=== PATIENT | female | born 1970 | race Caucasian/White ===

== ENCOUNTER 2018-11-08 11:08 | Emergency (ER) | payer OTHER ==
[2018-11-08 11:32] LABS: Bilirubin Negative (Negative); Blood, Urine Negative (Negative); Clarity Clear (Clear); Glucose, Urine (Dipstick) Negative (Negative); Leukocyte Negative (Negative); Nitrite Negative (Negative); Protein, Urine (Dipstick) Negative (Neg-Trace); Urobilinogen 0.2 mg/dL (0.2-1.0)
[2018-11-08 12:17] LABS: #Basophils 0.1 thou/uL (0.0-0.2); #Eosinphils 0.2 thou/uL (0.0-0.7); #Lymphocytes 1.9 thou/uL (1.20-3.40); #Monocytes 0.4 thou/uL (0.11-0.59); #Neutrophils 5.3 thou/uL (1.40-6.50); %Basophils 1.1 % (0.0-1.0); %Eosinophils 2.2 % (0.0-10.0); %Lymphocytes 24.1 % (21.0-51.0); %Monocytes 5.5 % (0.0-10.0); %Neutrophils 67.2 % (42.0-75.0); Mean Corpuscular HGB CONC 32.1 g/dL (32.0-36.0); Mean Corpuscular Hemoglobin 29.2 pg (27.0-31.0); Mean Corpuscular Volume 90.9 fL (78.0-98.0); Mean Platelet Volume 8.5 fL (7.4-10.4); Platelet Count 229 thou/uL (130-400); Red Blood Cell (RBC) Count 4.44 mill/uL (4.20-5.40); White Blood Cell (WBC) Count 7.9 thou/uL (4.8-10.8)
[2018-11-08 12:31] LABS: ALT (SGPT) 26 U/L (8-55); AST (SGOT) 22 U/L (5-34); Albumin 4.2 g/dL (3.5-5.0); Alkaline Phosphatase 87 U/L (40-150); Anion Gap 11 mmol/L (10-20); BUN (Urea Nitrogen) 11 mg/dL (7.0-18.7); Bilirubin, Total 0.3 mg/dL (0.2-1.2); Calc. Creatinine Clearance 0 mL/min (70-130); Calcium 9.4 mg/dL (7.8-10.44); Carbon Dioxide 28 mmol/L (22-29); Chloride 103 mmol/L (98-107); Estimated GFR-MDRD 74; Glucose 85 mg/dL (70-105); Lipase 27 U/L (8-78); Potassium 3.9 mmol/L (3.5-5.1); Protein, Total 7.2 g/dL (6.0-8.3); Sodium 138 mmol/L (136-145)
--- NOTE | 2018-11-08 13:13 | CT ---
CT ABDOMEN AND PELVIS: HISTORY: Left lower quadrant pain since yesterday. History of pancreatitis two years ago. TECHNIQUE: Noncontrast enhanced CT images of the abdomen and pelvis are obtained. IV and oral contrast was not given. FINDINGS: The lung bases are unremarkable. No evidence of free intraperitoneal air is seen. The patient has h ad gastric surgical nathan. The gallbladder has been surgically removed. The liver and spleen are unremarkable. The adrenal glands are unremarkable. No evidence of renal calculi or hydronephrosis i s seen. The pancreas is unremarkable. No dilated loops of small bowel seen. The colon demonstrates no evidence of obvious significant obstruction. A normal amount of stool is seen in the colon. No definite osseous lesion is seen. IMPRESSION: 1. Gastric surgical changes. 2. Status post cholecystectomy. POS: [facility]
[2018-11-08] MEDS ORDERED: Acetaminophen/Codeine 30-300mg Tablet ONE (13:23)
--- NOTE | 2018-11-08 13:23 | ULT ---
PELVIC ULTRASOUND: Date: 11/08/18 HISTORY: Pelvic pain. FINDINGS: Multiple transabdominal and endovaginal sonographic images of the pelvis are obtained. The uterus is not visualized, consistent with the patient's reported history of prior hysterectomy. There are nabothian cysts seen within the cervix. The ovaries are not visualized bilaterally, but no adnexal mass is seen, and no free fluid is seen in the pelvis. IMPRESSION: 1. Nonvisualization of the bilateral ovaries. No adnexal mass or free fluid is identified. 2. Nonvisualization of the uterus related to patient's history of prior hysterectomy. POS: [facility]
== END 2018-11-08 13:31 | disposition home or self-care (01) ==
LOC: SCSER 11:08
DX: R10.32 Left lower quadrant pain (principal); F41.9 Anxiety disorder, unspecified; F32.9 Major depressive disorder, single episode, unspecified; I10 Essential (primary) hypertension; Z79.899 Other long term (current) drug therapy
CPT/HCPCS: 36415; 74176; 76856; 80053; 81003; 83605; 83690; 85025

== ENCOUNTER 2019-12-19 07:54 | Outpatient (CLI) | payer OTHER ==
--- NOTE | 2019-12-20 12:40 | MMO ---
Bilateral MAMMO Bilat Screen [facility]DI. CLINICAL HISTORY: Patient is 49 years old and is seen for screening. The patient has the following family history of breast cancer: maternal grandmother, at age 54, malignant (generic) and paternal grandmother, at age 80, malignant (generic). The patient has a history of bilateral Breast reduction at age 27. VIEWS: The views performed were: bilateral craniocaudal; bilateral mediolateral oblique; and bilateral exaggerated craniocaudal. FILMS COMPARED: The present examination has been compared to prior imaging studies performed at [facility] on 10/12/2013 and 12/12/2015. This study has been interpreted with the assistance of computer-aided detection. MAMMOGRAM FINDINGS: There are scattered fibroglandular densities. There are no suspicious masses, suspicious calcifications, or new areas of architectural distortion. IMPRESSION: THERE IS NO MAMMOGRAPHIC EVIDENCE OF MALIGNANCY. A ROUTINE FOLLOW-UP MAMMOGRAM IN 1 YEAR IS RECOMMENDED. ACR BI-RADS Category 1 - Negative MAMMOGRAPHY NOTE: 1. A negative mammogram report should not delay a biopsy if a dominant of clinically suspicious mass is present. 2. Approximately 10% to 15% of breast cancers are not detected by mammography. 3. Adenosis and dense breasts may obscure an underlying neoplasm. Reported by: MARTHA GARDNER MD Electonically Signed: [id number]
== END 2019-12-19 07:55 | disposition home or self-care (01) ==
LOC: BICMAMMO 07:54
PROVIDERS: ATTEND Nurse Practitioner
DX: Z12.31 Encounter for screening mammogram for malignant neoplasm of breast (principal); Z80.3 Family history of malignant neoplasm of breast; Z98.890 Other specified postprocedural states
CPT/HCPCS: 77067

== ENCOUNTER 2019-12-28 07:57 | Observation (INO) | payer OTHER ==
[2019-12-28 08:42] LABS: #Basophils 0.1 thou/uL (0.0-0.2); #Eosinphils 0.1 thou/uL (0.0-0.7); #Lymphocytes 1.5 thou/uL (1.20-3.40); #Monocytes 0.4 thou/uL (0.11-0.59); #Neutrophils 3.1 thou/uL (1.40-6.50); %Basophils 1.6 % (0.0-1.0); %Eosinophils 2.2 % (0.0-10.0); %Monocytes 7.6 % (0.0-10.0); %Neutrophils 59.6 % (42.0-75.0); Hemoglobin 13.7 g/dL (12.0-16.0); Mean Corpuscular HGB CONC 32.3 g/dL (32.0-36.0); Mean Corpuscular Hemoglobin 29.8 pg (27.0-31.0); Mean Corpuscular Volume 92.5 fL (78.0-98.0); Mean Platelet Volume 9.1 fL (7.4-10.4); Platelet Count 242 thou/uL (130-400); RBC Distribution Width 12.2 % (11.5-14.5); Red Blood Cell (RBC) Count 4.57 mill/uL (4.20-5.40); White Blood Cell (WBC) Count 5.3 thou/uL (4.8-10.8)
--- NOTE | 2019-12-28 08:47 | CT ---
Exam: Head CT without contrast HISTORY: Altered mental status COMPARISON: 11/05/2014 FINDINGS: Hemorrhage: No intraparenchymal hemorrhage or extra-axial hematoma. Brain parenchyma: Cortical arceo-white matter differentiation is preserved. No mass effect or midline shift. Basilar cisterns are patent. Ventricular system: Ventricles and sulci are patent and symmetric. Calvarium: Intact. Sinuses and mastoid air cells: Adequate aeration. IMPRESSION: No acute intracranial process.
[2019-12-28 09:04] LABS: ALT (SGPT) 14 U/L (8-55); AST (SGOT) 21 U/L (5-34); Albumin 4.4 g/dL (3.5-5.0); Alkaline Phosphatase 85 U/L (40-110); Anion Gap 12 mmol/L (10-20); BUN (Urea Nitrogen) 12 mg/dL (7.0-18.7); Bilirubin, Total 0.4 mg/dL (0.2-1.2); Calc. Creatinine Clearance 0 mL/min (70-130); Carbon Dioxide 28 mmol/L (22-29); Chloride 102 mmol/L (98-107); Estimated GFR-MDRD 61; Globulin 3.1 g/dL (2.4-3.5); Glucose 83 mg/dL (70-105); Potassium 4.1 mmol/L (3.5-5.1); Protein, Total 7.5 g/dL (6.0-8.3); Sodium 138 mmol/L (136-145)
[2019-12-28] MEDS ORDERED: Aspirin Chewable 81 MG TAB ONE (09:30)
[2019-12-28] MEDS ORDERED: Ondansetron ODT 4 MG TAB PO PRN (09:53)
[2019-12-28] MEDS ORDERED: Bisacodyl 5 MG TAB PO PRN (09:53)
[2019-12-28] MEDS ORDERED: HYDROcodone/Acetaminophen 5/325 mg Tablet PO PRN (09:53)
[2019-12-28] MEDS ORDERED: Ondansetron PF 4 MG/2 ML Vial IVP PRN (09:53)
[2019-12-28] MEDS ORDERED: Benzonatate 100 MG CAP PO PRN (10:04)
[2019-12-28] MEDS ORDERED: Melatonin 3 MG TAB PO PRN (10:04)
[2019-12-28] MEDS ORDERED: diphenhydrAMINE 25 MG CAP PO PRN (10:04)
[2019-12-28] MEDS ORDERED: hydrALAZINE 20 MG/ML VIAL SLOW IVP PRN (10:04)
[2019-12-28] MEDS ORDERED: Labetalol HCl 100 MG/20 ML VIAL SLOW IVP PRN (10:04)
[2019-12-28] MEDS ORDERED: Docusate 100 MG CAP PO PRN (10:04)
--- NOTE | 2019-12-28 10:06 | RAD ---
CHEST 1 VIEW PORTABLE: Date: 12/28/2019 HISTORY: Altered mental status. Right-sided numbness. COMPARISON: 12/24/2013. FINDINGS: Monitor leads overlie the chest. Heart size is within normal limits. The lungs are clear of acute pro cess. IMPRESSION: No acute intrathoracic disease. Stable exam. POS: [facility]
[2019-12-28] MEDS ORDERED: Ibuprofen 600 MG TAB PO PRN (11:30)
[2019-12-28] MEDS: Acetaminophen 325 MG TAB PO PRN (14:37)
[2019-12-28 14:47] VITALS: BMI 29.7
--- NOTE | 2019-12-28 15:06 | MRI ---
Exam: Brain MRI without contrast HISTORY: Transient ischemic attack COMPARISON: None FINDINGS: Calvarial marrow signal intensity: T1 marrow signal hypointensity. Correlate for anemia or a marrow i nfiltrative process Gradient echo sequence: No hemorrhage Brain parenchyma: No mass, mass effect or midline shift. Brain volume, age-appropriate. Cortical arceo-white matter differentiation: Preserved Restricted diffusion: Central arterial flow voids are maintained. Absent restricted diffusion White matter signal intensities: No significant T2, FLAIR white matter hyperintensities Sinuses: Adequate aeration of the paranasal sinuses and mastoid air cells. IMPRESSION: 1. Absent restricted diffusion. No acute infarct. 2. T1 marrow signal hypointensity. Correlate for anemia or a marrow infiltrative process.
--- NOTE | 2019-12-28 15:55 | ULT ---
BILATERAL CAROTID DUPLEX ULTRASOUND INCLUDING COLOR AND SPECTRAL DOPPLER IMAGING: DATE: 12/28/2019 HISTORY: TIA. FINDINGS: PSV Right ICA: 62 cm/sec EDV: 27 cm/sec ICA/CCA Ratio: 0.7 PSV Left ICA: 106 cm/sec EDV: 48 cm/sec ICA/CCA Ratio: 1.0 Vertebral flow is antegrade. IMPRESSION: No hemodynamically significant stenosis. POS: [facility]
--- NOTE | 2019-12-28 16:46 | PDOC.HHP ---
Hospitalist HPI - History of Present Illness TIA symptoms History of Present Illness: Very pleasant 49-year-old female with past medical history of TIA, hypertension , and obesity status post gastric bypass who presents with TIA symptoms. Patient started having symptoms yesterday around 7 PM which involved numbness and tingling on the right side of face, right arm, and leg with associated weakness. Patient also had numbness and tingling to the tongue only on half of the tongue however. Patient symptoms lasted about 45 minutes to an hour and then they did improve and she was resting at home. 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 I find the patient in the emergency department she is resting in bed in no apparent distress. Patient still complaining of headache at this time and states that this has been persistent as her blood pressure has been elevated near 200 systolic. Patient has been off for blood pressure medications for some time as she had a good deal of weight loss after bariatric surgery. With patient's neurologic symptoms I've recommended neurology consultation and CVA work up. Hospitalist ROS - Review of Systems All other systems reviewed; all pertinent +/- noted in HPI/Subj - Medication Medications: Active Medications Generic Name Dose Route Start Last Admin Trade Name Freq PRN Reason Stop Dose Admin Acetaminophen 650 mg 12/28/19 09:53 12/28/19 14:37 Tylenol PO 650 mg Q4H PRN Administration Headache/Fever/Mild Pain (1-3) Hospitalist History - Past Medical History Source: patient, old records Cardiac: reports: HTN Pulmonary: reports: CVA/TIA/stroke Gastrointestinal: reports: Other (gastric bypass) - Past Surgical History Past Surgical History: reports: Other (gastric bypass) - Family History Family History: reports: hypertension - Social History Smoking Status: Never smoker Alcohol: reports: None Drugs: reports: none Living Situation: With Family Activity level: independent ambulation - Exam General Appearance: NAD, awake alert Eye: PERRL, anicteric sclera ENT: normocephalic atraumatic, moist mucosa Neck: supple, symmetric, no lymphadenopathy Heart: RRR, no murmur, no gallops, no rubs Respiratory: CTAB, no wheezes, no rales, no ronchi, normal chest expansion, no tachypnea Gastrointestinal: soft, non-tender, no guarding, no rigidity Extremities: no edema Skin: no lesions, no rashes Neurological: cranial nerve grossly intact, normal sensation to touch, no weakness, no focal deficits Psychiatric: normal affect, normal behavior, A&O x 3 Hospitalist Results - Labs Result Diagrams: 12/28/19 08:12 12/28/19 08:12 Lab results: WBC 5.3 thou/uL (4.8-10.8) 12/28/19 08:12 Hgb 13.7 g/dL (12.0-16.0) 12/28/19 08:12 Hct 42.3 % (36.0-47.0) 12/28/19 08:12 MCV 92.5 fL (78.0-98.0) 12/28/19 08:12 Plt Count 242 thou/uL (130-400) 12/28/19 08:12 Neutrophils % 59.6 % (42.0-75.0) 12/28/19 08:12 Sodium 138 mmol/L (136-145) 12/28/19 08:12 Potassium 4.1 mmol/L (3.5-5.1) 12/28/19 08:12 Chloride 102 mmol/L (98-107) 12/28/19 08:12 Carbon Dioxide 28 mmol/L (22-29) 12/28/19 08:12 BUN 12 mg/dL (7.0-18.7) 12/28/19 08:12 Creatinine 0.97 mg/dL (0.6-1.1) 12/28/19 08:12 Glucose 83 mg/dL (70-105) 12/28/19 08:12 Calcium 10.0 mg/dL (7.8-10.44) 12/28/19 08:12 Total Bilirubin 0.4 mg/dL (0.2-1.2) 12/28/19 08:12 AST 21 U/L (5-34) 12/28/19 08:12 ALT 14 U/L (8-55) 12/28/19 08:12 Alkaline Phosphatase 85 U/L (40-110) 12/28/19 08:12 Troponin I 0.010 ng/mL (< 0.028) 12/28/19 08:12 Serum Total Protein 7.5 g/dL (6.0-8.3) 12/28/19 08:12 Albumin 4.4 g/dL (3.5-5.0) 12/28/19 08:12 - Radiology Interpretation CT scan - head Status: image reviewed by me Hospitalist H&P A/P - Problem (1) TIA (transient ischemic attack) Code(s): G45.9 - TRANSIENT CEREBRAL ISCHEMIC ATTACK, UNSPECIFIED Status: Acute (2) Malignant hypertension Code(s): I10 - ESSENTIAL (PRIMARY) HYPERTENSION Status: Acute (3) Obesity Code(s): E66.9 - OBESITY, UNSPECIFIED Status: Acute (4) Hypertension Code(s): I10 - ESSENTIAL (PRIMARY) HYPERTENSION Status: Acute (5) Obstructive sleep apnea Code(s): G47.33 - OBSTRUCTIVE SLEEP APNEA (ADULT) (PEDIATRIC) Status: Acute - Plan Plan: Plan: Admit to medical unit with telemetry, stroke unit Neurology consultation, recommendations appreciated continuous telemetry to monitor for rhythm abnormalities that could explain symptoms MRI brain Ultrasound carotid echocardiogram recommend trying something for migraine, patient only wishes to take Tylenol blood pressure control, I will restart her lisinopril at this point with TIA in the past, and now TAA symptoms I would recommend a stroke regimen: -Start Bg inh -Start statin -Start aspirin fasting lipid panel blood pressure control blood sugar control G.I. prophylaxis DVT prophylaxis
[2019-12-28] MEDS ORDERED: Lisinopril 20 MG TAB PO SCH (17:00)
[2019-12-28] MEDS ORDERED: Atorvastatin Calcium 10 MG TAB PO SCH (21:00)
[2019-12-28] MEDS: Famotidine 20 MG TAB PO SCH (21:09)
[2019-12-29] MEDS: Acetaminophen 325 MG TAB PO PRN ×2 (03:25→08:29)
[2019-12-29 06:06] LABS: Cardiac Risk 1.6 (Less than 4.5)
[2019-12-29] MEDS: Famotidine 20 MG TAB PO SCH (08:28)
[2019-12-29] MEDS ORDERED: Lisinopril 20 MG TAB PO SCH (09:00)
[2019-12-29] MEDS ORDERED: Aspirin 325 mg Enteric Coated Tablet PO SCH (09:00)
--- NOTE | 2019-12-29 10:25 | CON ---
DATE OF CONSULTATION: 12/29/2019 CONSULTING PHYSICIAN: Hospitalist Service. IMPRESSION: Transient numbness and headaches secondary to either a migraine or hypertensive spike. PLAN: 1. Continue lisinopril. 2. Aspirin 81 mg per day. 3. The patient can be discharged home. HISTORY OF PRESENT ILLNESS: Ms. Henderson is a 49-year-old female with a past history of hypertension and obesity. She lost quite a bit of weight and was able to get off the medication. She was driving home when she suddenly noticed that the right side of her face felt numb. She started developing a fairly significant headache. When she got home, she took her blood pressure and it was elevated at 190/118. She decided to rest and take a nap. After waking up, the symptoms were gone. She came in for further evaluation. Her CT and MRI of the brain were both unremarkable. Her carotid ultrasound is clear. Her blood pressures have improved after starting treatment. She denies any other past history of recent migraines, but had one in the distant past. PAST HISTORY: Hypertension, obesity. ALLERGIES: ATROPINE, HYOSCYAMINE, PHENOBARBITAL, AND SCOPOLAMINE. MEDICATIONS: List was reviewed. SOCIAL HISTORY: No tobacco use. FAMILY HISTORY: Noncontributory. REVIEW OF SYSTEMS: Ten-system review of systems is otherwise negative. PHYSICAL EXAMINATION: VITAL SIGNS: Blood pressure 117/64, pulse 45, respirations 14, and temperature 98.1. HEENT: Pupils are equal and reactive. Conjunctivae are clear. Oropharynx clear. NECK: Supple. EXTREMITIES: No cyanosis, clubbing, or edema. NEUROLOGIC: She is alert and appropriate. Her speech is fluent and clear. Cranial nerves are intact. Motor exam shows equal strength. She has no fix or drift. She can walk independently. IMAGING STUDIES: EKG shows sinus bradycardia. SUMMARY: Middle-aged woman with some transient hemifacial numbness along with a headache and hypertensive spike. I do not think this was a primary TIA, but more likely either hypertensive urgency versus migraine, which provoke some secondary elevation of blood pressure. Workup thus far is negative. I think she is stable for discharge. Job ID: [id number]
[2019-12-29 11:40] VITALS: TEMP 98.3
[2019-12-29 16:30] VITALS: BP 120/79
--- NOTE | 2019-12-30 02:02 | DIS ---
DATE OF ADMISSION: 12/28/2019 DATE OF DISCHARGE: 12/29/2019 REASON FOR HOSPITALIZATION: Right-sided numbness, weakness, and tingling. SIGNIFICANT FINDINGS: The patient was found to have a negative MRI of the brain, negative for acute CVA, stroke workup was benign. PROCEDURES PERFORMED AND TREATMENTS RENDERED: Ms. Henderson is a very pleasant 49-year-old female with past medical history of TIA and hypertension, who presents to [facility] on 12/28/2019 with right-sided weakness, numbness, and tingling. Please see full history and physical and consultation notes for full details. The patient tells me that around 7 p.m., the evening prior to admission, she developed tingling on the right side of the face, right arm, leg, and there was associated weakness. The patient even had loss of sensation in the right side of her tongue. The patient did note that she also had severely elevated blood pressure nearly 200 systolic. The patient has been off blood pressure medications for several years as she has had a good deal of weight loss after bariatric surgery. The patient waited roughly 45 minutes at home and her symptoms did improve and she went to sleep. 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 I admitted the patient to the medical unit with telemetry and she was monitored on continuous telemetry throughout her hospitalization and there were no acute events. With the addition of blood pressure medications lisinopril, her blood pressure was controlled. The patient was evaluated by Neurology, please see full consultation notes for details. Neurology agreeing with CVA workup and recommending that symptoms may have 3 possibilities: TIA, complex migraine, or blood pressure related. The patient did have a severe headache with this and it did also improve with symptomatic therapy and blood pressure control. Due to the patient having prior episodes of TIA, I recommended a stroke regimen to reduce her risk for future events. YAQUELIN inhibitor, statin, and aspirin therapy was initiated while in hospitalization. The patient was evaluated by Physical Therapy and Occupational Therapy and as symptoms have resolved, she was recommended safe for discharge home. The patient was not a tPA candidate secondary to low NIH score on admission and onset of timing being out of the window. A fasting lipid panel was performed prior to discharge for core measures. On the morning of 12/29/2019, after she was cleared by Neurology, Physical Therapy, and that her symptoms have resolved, I recommended that she was safe for discharge with close followup in the outpatient setting. Medications were sent to the patient's preferred pharmacy for her convenience. I recommended that she follow up with primary care physician and Neurology in the outpatient clinic in the upcoming weeks. The patient was strictly advised that if symptoms occur acutely next time, she is to come to the hospital immediately and not delay care. CONDITION ON DISCHARGE: Stable. SPECIFIC INSTRUCTIONS FOR THE PATIENT/FAMILY: 1. The patient recommended to keep a blood pressure log and bring this to her appointments at primary care physician and Neurology. 2. The patient recommended to take all medications as directed, to be re-evaluated by primary care physician and Neurology. 3. The patient recommended to return to acute care hospital immediately if signs or symptoms return, worsen, or any other new symptoms occur. DISCHARGE MEDICATIONS: 1. Atorvastatin 10 mg 1 tab p.o. at bedtime. 2. Aspirin 325 mg 1 tab p.o. daily with food. 3. Lisinopril 10 mg 1 tab p.o. b.i.d. 4. Multivitamin 1 tab p.o. daily. 5. Valtrex 1000 mg p.o. daily p.r.n. outbreak. 6. Vitamin D3, 5000 units p.o. daily. Greater than 39 minutes spent coordinating care and discharge process for this patient. Job ID: [id number]
== END 2019-12-29 12:57 | disposition home or self-care (01) ==
LOC: ERS 07:57 → ERHOLD 10:03 → 2SE 13:48
PROVIDERS: ADMIT Internal Medicine; ATTEND Internal Medicine
DX: R20.0 Anesthesia of skin (principal); R20.2 Paresthesia of skin; R53.1 Weakness; R51 Headache; I10 Essential (primary) hypertension; G47.33 Obstructive sleep apnea (adult) (pediatric); F41.9 Anxiety disorder, unspecified; E66.9 Obesity, unspecified; Z68.29 Body mass index [BMI] 29.0-29.9, adult; Z86.73 Personal history of transient ischemic attack (TIA), and cerebral infarction without residual deficits; Z79.899 Other long term (current) drug therapy; Z88.8 Allergy status to other drugs, medicaments and biological substances; Z98.84 Bariatric surgery status
CPT/HCPCS: 36415; 70450; 70551; 71045; 80053; 80061; 84484; 85025; 93005; 93880; G0378

== ENCOUNTER 2020-07-08 17:17 | Emergency (ER) | payer OTHER ==
[~2020-07-08 17:17] MED LIST: Iopamidol-370 76% 500 ML 1 ML ONE
[2020-07-08 17:52] LABS: #Basophils 0.1 thou/uL (0.0-0.2); #Eosinphils 0.3 thou/uL (0.0-0.7); #Lymphocytes 1.7 thou/uL (1.20-3.40); #Monocytes 0.4 thou/uL (0.11-0.59); #Neutrophils 4.2 thou/uL (1.40-6.50); %Basophils 1.1 % (0.0-1.0); %Lymphocytes 25.6 % (21.0-51.0); %Monocytes 6.5 % (0.0-10.0); %Neutrophils 62.8 % (42.0-75.0); Hemoglobin 11.8 g/dL (12.0-16.0); Mean Corpuscular HGB CONC 32.9 g/dL (32.0-36.0); Mean Corpuscular Hemoglobin 30.5 pg (27.0-31.0); Mean Corpuscular Volume 92.6 fL (78.0-98.0); Mean Platelet Volume 8.9 fL (7.4-10.4); Platelet Count 266 thou/uL (130-400); RBC Distribution Width 12.6 % (11.5-14.5); Red Blood Cell (RBC) Count 3.88 mill/uL (4.20-5.40); White Blood Cell (WBC) Count 6.6 thou/uL (4.8-10.8)
[2020-07-08 18:12] LABS: ALT (SGPT) 64 U/L (8-55); AST (SGOT) 58 U/L (5-34); Albumin 3.7 g/dL (3.5-5.0); Alkaline Phosphatase 127 U/L (40-110); Anion Gap 12 mmol/L (10-20); BUN (Urea Nitrogen) 10 mg/dL (7.0-18.7); Bilirubin, Total 0.2 mg/dL (0.2-1.2); Calc. Creatinine Clearance 0 mL/min (70-130); Calcium 8.4 mg/dL (7.8-10.44); Carbon Dioxide 26 mmol/L (22-29); Chloride 105 mmol/L (98-107); Estimated GFR-MDRD 74; Globulin 2.8 g/dL (2.4-3.5); Glucose 84 mg/dL (70-105); Potassium 4.1 mmol/L (3.5-5.1); Protein, Total 6.5 g/dL (6.0-8.3); Sodium 139 mmol/L (136-145)
[2020-07-08] MEDS ORDERED: Morphine 4 MG/ML VIAL ONE (18:17)
[2020-07-08] MEDS ORDERED: Ondansetron PF 4 MG/2 ML Vial ONE (18:17)
--- NOTE | 2020-07-08 19:41 | CT ---
Exam: CTA chest with 3-D rendering: CTA abdomen with 3-D rendering: HISTORY: Back pain, radiating to the chest. COMPARISON: None TECHNIQUE: CT angiogram of the thoracic and abdominal aorta performed in the axial plane. Three-dimen sional reformatted images are submitted for interpretation. FINDINGS: Chest CT: Mediastinum: No mass, lymphadenopathy or hematoma Heart: Normal heart size. No significant pericardial fluid. Coronary arteries: No significant atherosclerotic disease Trachea and central bronchi: Patent Pleural spaces: No pleural effusion. Right lung: Small blebs in the right upper lobe measuring 1.1 cm. No suspicious masses or consolidati on. There are dependent atelectatic changes. Nonspecific groundglass opacity in the medial aspect of the right lower lobe is presumed to be due to atelectasis. Left lung: Dependent atelectatic changes. No suspicious masses or consolidation. Pneumothorax: None Abdomen CT: Gallbladder: Surgically absent. Portal vein: Cannot be assessed on this arterial phase study Solid organs: Appropriate arterial phase enhancement of the liver, spleen, pancreas and adrenal gland s Kidneys: Symmetric enhancement. No obstructive uropathy. Mesentery: No mass, lymphadenopathy, free ai r or free fluid Alimentary canal: Limited evaluation by the lack of oral contrast. No evidence of a bowel obstruction . Normal ileocecal junction. Osseous structures: No lytic or blastic lesions. There is diffuse bone demineralization. CT ANGIOGRAM: Thoracic aorta: Appropriate enhancement and luminal diameter of the root of the aorta, ascending thor acic aorta, aortic arch, descending thoracic aorta Abdominal aorta: Appropriate enhancement and luminal diameter of the abdominal aorta. Celiac artery, superior mesenteric artery and inferior mesenteric artery: Appropriate enhancement and luminal diameter. Renal arteries: Patent solitary left and right renal arteries. Aortic bifurcation: Appropriate enhancement and luminal diameter of the visualized iliac arteries. IMPRESSION: No CT evidence for aortic aneurysm or aortic dissection.
== END 2020-07-08 20:58 | disposition home or self-care (01) ==
LOC: ERS 17:17
DX: M54.6 Pain in thoracic spine (principal); I10 Essential (primary) hypertension; F41.9 Anxiety disorder, unspecified
CPT/HCPCS: 71275; 72191; 74175; 80053; 84484; 85025; 93005; 96374; 96375; 99406; J2270; J2405; Q9967

== ENCOUNTER 2020-08-01 13:18 | Outpatient (CLI) | payer OTHER ==
--- NOTE | 2020-08-01 14:10 | ULT ---
Exam: Thyroid ultrasound HISTORY: Thyroid nodule COMPARISON: None FINDINGS: Thyroid isthmus 0.30 cm Right thyroid lobe 1.8 x 4.5 x 1.6 cm Left thyroid lobe 1.4 x 4.0 x 1.5 cm Thyroid nodules: Right thyroid lobe: 1.3 x 0.6 x 0.7 cm hypoechoic focus in the lower pole of the right thyroid lobe. Solid echotexture slightly hypoechoic mass measuring 1.4 x 2.6 x 1.1 cm at the junction of the right thyroid lobe and inferior aspect of the isthmus. No nodules in the isthmus or left thyroid lobe. IMPRESSION: 1. Solid echotexture nodule in the inferior aspect of the right upper lobe near the thyroid isthmus w ith a TI-RADS level of TR 4, moderately suspicious. The location lesion may make ultrasound guided biopsy difficult but an attempt should be made. 2. Complex lesion in the right thyroid lobe with a TI-RADS level of TR 3, moderately suspicious. Foll ow-up in one year. Transcribed Date/Time: 08/01/2020 2:14 PM
== END 2020-08-01 13:19 | disposition home or self-care (01) ==
LOC: BICULT 13:18
PROVIDERS: ATTEND Anesthesiology Pain Medicine
DX: E04.1 Nontoxic single thyroid nodule (principal); E07.89 Other specified disorders of thyroid
CPT/HCPCS: 76536

== ENCOUNTER 2020-08-08 07:41 | Outpatient (CLI) | payer OTHER ==
--- NOTE | 2020-08-08 09:05 | MRI ---
MRI OF THE RIGHT HIP WITHOUT IV CONTRAST: Date: 08/08/2020 INDICATION: History of right hip pain after fall. COMPARISON: Prior MRI of the right hip dated 04/25/2020. FINDINGS: Since the comparison examination, there has been some interval healing of the contusion involving the right ischial tuberosity. There is worsening interstitial tearing involving the common hamstring silas gins from the right ischial tuberosity predominantly affecting the semimembranosus attachments. No fu ll thickness tear is evident. There is mild tendinosis of the right gluteus minimus and medius with s ome improvement of the overlying trochanteric bursitis. The rectus femoris is intact. No iliopsoas bu rsitis is evident. Muscular edema involving the right hip girdle, particularly within the posterior a spect of the right hip girdle, along the right obturator internus appears improved. There is less eder ma along the course of the right sciatic nerve. No enlarged lymph nodes are evident. No joint effusio n is evident. Visualized aspects of the acetabular labrum appear intact. The ligamentum teres is inta ct. No new bone marrow signal abnormality is evident. Small cystic lesion involving the left adnexa m easuring up to 3.4 cm is slightly larger than on the prior examination and may reflect an inclusion c yst. Further characterization with a follow-up pelvic ultrasound is recommended. There is a small nab othian cyst within the cervix. IMPRESSION: 1. Interval healing of the right ischial tuberosity contusion. 2. Worsening interstitial tearing of the right common hamstring origin. This is consistent with a Gr josias II strain. 3. Mild right gluteus minimus and medius tendinosis with improved trochanteric bursitis. 4. Improvement in the soft tissue edema seen along the posterior aspects of the right hip girdle and along the right sciatic nerve likely reflecting resolved post-traumatic edema. 5. Small cystic lesion involving the left adnexa is slightly larger, measuring 3.3 cm, where it yeimy ured 2.8 cm on the prior exam. Follow-up pelvic ultrasound is recommended for further characterizatio n. POS: [facility]
== END 2020-08-08 07:42 | disposition home or self-care (01) ==
LOC: MRI 07:41
PROVIDERS: ATTEND Orthopaedic Surgery
DX: M25.551 Pain in right hip (principal); S70.01XD Contusion of right hip, subsequent encounter; S76.011A Strain of muscle, fascia and tendon of right hip, initial encounter; M76.891 Other specified enthesopathies of right lower limb, excluding foot; M70.61 Trochanteric bursitis, right hip; N89.8 Other specified noninflammatory disorders of vagina

== ENCOUNTER 2020-08-11 10:54 | Outpatient (CLI) | payer OTHER ==
[2020-08-12 15:29] LABS: SARS-CoV-2 MS2 Positive; SARS-CoV-2 N Gene Negative; SARS-CoV-2 S Gene Negative; SARS-CoV-2 by NAA Not Detected (NotDetected); SARS-CoV-2 orf1ab Negative
== END 2020-08-11 10:55 | disposition home or self-care (01) ==
LOC: LABBT 10:54
PROVIDERS: ATTEND Student in an Organized Health Care Education/Training Program
DX: E04.1 Nontoxic single thyroid nodule (principal); Z20.828 Contact with and (suspected) exposure to other viral communicable diseases
CPT/HCPCS: 87635; U0003

== ENCOUNTER 2020-08-14 12:36 | Day surgery (SDC) | payer OTHER ==
[2020-08-13 11:41] VITALS: BMI 30.2
[2020-08-14] MEDS ORDERED: Lidocaine 1% PF 5 ML VIAL ONE (12:47)
[2020-08-14] MEDS ORDERED: Sodium Bicarbonate 2.5 MEQ/5 ML VIAL ONE (12:47)
[2020-08-14 14:35] VITALS: BP 134/74; TEMP 98.6
--- NOTE | 2020-08-14 15:45 | ULT ---
PROCEDURE: US Thyroid Needle Bx PROVIDED CLINICAL HISTORY: TI RADS level 4 nodule right lobe of the thyroid gland. Fine-needle aspiration was recommended. COMPARISON: Thyroid ultrasound on 07/12/2020. TECHNIQUE: After informed consent was obtained, the patient was placed on the sonography table in the supine pos ition. Sonographic evaluation of the right lobe of the thyroid gland was performed. The nodule in the posterior aspect right lobe of the thyroid gland was localized with ultrasound guidance. The neck was meticulously prepped and draped in usual sterile fashion. The skin and subcutaneous tissues were infiltrated with buffered 1% lidocaine for local anesthesia at the intended puncture site. Utilizing concurrent real-time ultrasound guidance, 4 fine-needle aspiration specimens were obtained utilizing 25-gauge needles. Hemostasis was achieved with direct pressure, and a dry sterile dressing was placed. The patient rogerio rated the procedure well and without immediate complication. IMPRESSION: 1. Technically successful fine-needle aspiration of a dominant right thyroid nodule. Pathology is cur rently pending.
== END 2020-08-14 14:10 | disposition home or self-care (01) ==
LOC: ULT 12:36
PROVIDERS: ATTEND Student in an Organized Health Care Education/Training Program
PROC: 0GBH3ZX Excision of Right Thyroid Gland Lobe, Percutaneous Approach, Diagnostic (ICD-10-PCS; principal; 2020-08-14)
PROC: BG44ZZZ Ultrasonography of Thyroid Gland (ICD-10-PCS; principal; 2020-08-14)
DX: E04.1 Nontoxic single thyroid nodule (principal); G47.33 Obstructive sleep apnea (adult) (pediatric); I10 Essential (primary) hypertension; F41.9 Anxiety disorder, unspecified; F32.9 Major depressive disorder, single episode, unspecified; Z79.899 Other long term (current) drug therapy; Z88.8 Allergy status to other drugs, medicaments and biological substances
CPT/HCPCS: 60100; 76942; 88173

== ENCOUNTER 2020-09-10 13:41 | Outpatient (CLI) | payer OTHER ==
--- NOTE | 2020-09-10 16:20 | MRI ---
MR of the abdomen with and without IV contrast INDICATION: 50-year-old female with history of epigastric abdominal pain, abnormal liver function jasmin ts dilated TECHNIQUE: Multiplanar multisequence MR images were obtained of the abdomen with and without contrast utilizing MRCP protocol. Contrast: 18 cc of MultiHance was utilized. COMPARISON: MRI of the abdomen with and without contrast dated December 31, 2016 FINDINGS: Liver: There is worsening intrahepatic biliary ductal dilatation. No abnormal focal signal abnormalit y or region of enhancement is demonstrated. Gallbladder and biliary system: The gallbladder is surgically absent. There is worsening dilatation t he common bile duct.The common bile duct measures: 9.6 mm. This previously measured 6 mm. There is a small focal filling defect seen involving the distal common bile duct suspicious for tiny stone on image 24 series 12 measuring 3.7 mm. This is likely seen on image 22 of series 19. Pancreas: Normal appearing. Adrenal glands: Normal appearing. Kidneys: There is a 9.5 mm cyst involving the superior pole left kidney. Right kidney is normal-appea ring.. Spleen: Normal in size and signal intensity. Retroperitoneum and peritoneal cavity: No free fluid or lymphadenopathy is evident. Osseous structures: Bone marrow signal intensity is within normal limits. IMPRESSION: 1. 3.7 mm distal common bile duct stone inducing moderate intrahepatic and extra hepatic biliary duct al dilatation. 2. Left renal cyst.
== END 2020-09-10 13:42 | disposition home or self-care (01) ==
LOC: SCSMRI 13:41
PROVIDERS: ATTEND Physician Assistant Medical
DX: R10.13 Epigastric pain (principal); R94.5 Abnormal results of liver function studies; K80.50 Calculus of bile duct without cholangitis or cholecystitis without obstruction; K83.8 Other specified diseases of biliary tract; N28.1 Cyst of kidney, acquired
CPT/HCPCS: 74183

== ENCOUNTER 2020-09-12 06:39 | Outpatient (CLI) | payer OTHER ==
[2020-09-13 13:44] LABS: SARS-CoV-2 MS2 Positive; SARS-CoV-2 N Gene Negative; SARS-CoV-2 S Gene Negative; SARS-CoV-2 by NAA Not Detected (NotDetected); SARS-CoV-2 orf1ab Negative
== END 2020-09-12 06:40 | disposition home or self-care (01) ==
LOC: LABBT 06:39
PROVIDERS: ATTEND Internal Medicine Gastroenterology
DX: K80.71 Calculus of gallbladder and bile duct without cholecystitis with obstruction (principal); Z20.828 Contact with and (suspected) exposure to other viral communicable diseases
CPT/HCPCS: 87635; U0003

== ENCOUNTER 2020-09-15 05:52 | Day surgery (SDC) | payer OTHER ==
[2020-09-15] MEDS ORDERED: Fentanyl 100 MCG/2 ML VIAL ONE (07:01)
[2020-09-15] MEDS ORDERED: Iothalamate Meglumine 60% 50 ML VIAL FS ONE (07:50)
[2020-09-15] MEDS ORDERED: Indomethacin 50 MG SUPP ONE (07:51)
[2020-09-15] MEDS ORDERED: Levofloxacin 500 mg/D5W 100 ml Premix Bag ONE (08:08)
== END 2020-09-15 08:29 | disposition home or self-care (01) ==
LOC: SDC 05:52
PROVIDERS: ATTEND Internal Medicine Gastroenterology
DX: K80.71 Calculus of gallbladder and bile duct without cholecystitis with obstruction (principal); Z53.9 Procedure and treatment not carried out, unspecified reason; Z88.8 Allergy status to other drugs, medicaments and biological substances
CPT/HCPCS: J1610; J1956; J3010

== ENCOUNTER 2020-10-18 14:32 | Emergency (ER) | payer OTHER ==
[2020-10-18] MEDS ORDERED: Ondansetron PF 4 MG/2 ML Vial ONE (15:16)
[2020-10-18] MEDS ORDERED: Ketorolac Tromethamine 30 MG/ML VIAL ONE (15:16)
[2020-10-18] MEDS ORDERED: Morphine 4 MG/ML VIAL ONE (15:16)
[2020-10-18 15:25] LABS: #Lymphocytes 1.1 thou/uL (1.20-3.40); #Monocytes 0.2 thou/uL (0.11-0.59); #Neutrophils 6.2 thou/uL (1.40-6.50); %Basophils 0.3 % (0.0-1.0); %Eosinophils 0.3 % (0.0-10.0); %Lymphocytes 14.4 % (21.0-51.0); %Monocytes 3.1 % (0.0-10.0); %Neutrophils 81.9 % (42.0-75.0); Hemoglobin 12.3 g/dL (12.0-16.0); Mean Corpuscular HGB CONC 32.8 g/dL (32.0-36.0); Mean Corpuscular Hemoglobin 29.4 pg (27.0-31.0); Mean Corpuscular Volume 89.8 fL (78.0-98.0); Mean Platelet Volume 8.8 fL (7.4-10.4); Platelet Count 279 thou/uL (130-400); RBC Distribution Width 12.9 % (11.5-14.5); Red Blood Cell (RBC) Count 4.19 mill/uL (4.20-5.40); White Blood Cell (WBC) Count 7.6 thou/uL (4.8-10.8)
[2020-10-18 16:00] LABS: ALT (SGPT) 19 U/L (8-55); AST (SGOT) 33 U/L (5-34); Albumin 4.1 g/dL (3.5-5.0); Alkaline Phosphatase 101 U/L (40-110); Anion Gap 15 mmol/L (10-20); BUN (Urea Nitrogen) 10 mg/dL (7.0-18.7); Bilirubin, Total 0.2 mg/dL (0.2-1.2); Calc. Creatinine Clearance 0 mL/min (70-130); Calcium 9.2 mg/dL (7.8-10.44); Carbon Dioxide 26 mmol/L (22-29); Chloride 105 mmol/L (98-107); Globulin 3.4 g/dL (2.4-3.5); Glucose 97 mg/dL (70-105); Lipase 35 U/L (8-78); Potassium 4.7 mmol/L (3.5-5.1); Protein, Total 7.5 g/dL (6.0-8.3); Sodium 141 mmol/L (136-145)
--- NOTE | 2020-10-18 16:33 | CT ---
CT abdomen and pelvis with IV contrast HISTORY: Abdomen pain. COMPARISON: Multiple prior exams back to 11/11/2014. FINDINGS: The lung bases are clear. Postoperative changes of the stomach and small bowel are evident. Gallbladder surgically absent. Associated distention of the intrahepatic biliary system and common bi le duct up to 1.0 cm. No internal hyperdensities are apparent. Pancreas is not inflamed. A 0.8 cm cyst is noted at the superior pole of the left kidney, less conspicuous than on prior exams. No evidence of bowel obstruction or inflammation. Within the left pelvis, immediately posterior to the external iliac vessels and at the inferior eleni n of the left ovarian vein is an oval homogeneous fluid density structure that is 3.8 cm length by 2.9 cm width by 4.1 cm depth. It is more conspicuous than on the 11/08/2018 exam. Urinary bladder is unremarkable. IMPRESSION : No active inflammation or evidence of bowel obstruction. Cystic structure within the left pelvis favored to represent a left ovarian cyst, 4.1 cm. No evidence of complication. Chronic-type findings are stable.
== END 2020-10-18 17:37 | disposition home or self-care (01) ==
LOC: ERS 14:32
DX: N83.202 Unspecified ovarian cyst, left side (principal); I10 Essential (primary) hypertension; Z79.899 Other long term (current) drug therapy
CPT/HCPCS: 74177; 80053; 83690; 85025; 96374; 96375; J1885; J2270; J2405; Q9967

== ENCOUNTER 2021-12-18 07:54 | Outpatient (CLI) | payer OTHER | END 2021-12-18 07:55 | disposition home or self-care (01) | LOC: BICMAMMO 07:54 | PROVIDERS: ATTEND Nurse Practitioner | DX: Z12.31 Encounter for screening mammogram for malignant neoplasm of breast (principal); Z80.3 Family history of malignant neoplasm of breast; Z98.82 Breast implant status | CPT/HCPCS: 77063; 77067 ==

== ENCOUNTER 2022-06-03 07:26 | Outpatient (CLI) | payer OTHER | END 2022-06-03 07:27 | disposition home or self-care (01) | LOC: SCSMRI 07:26 | PROVIDERS: ATTEND Anesthesiology Pain Medicine | DX: M51.24 Other intervertebral disc displacement, thoracic region (principal); M47.814 Spondylosis without myelopathy or radiculopathy, thoracic region; M47.22 Other spondylosis with radiculopathy, cervical region | CPT/HCPCS: 72141; 72146 ==

== ENCOUNTER 2023-02-24 08:38 | Outpatient (CLI) | payer OTHER | END 2023-02-24 08:39 | disposition home or self-care (01) | LOC: MRI 08:38 | PROVIDERS: ATTEND Physician Assistant Medical | DX: R10.13 Epigastric pain (principal); Z98.84 Bariatric surgery status | CPT/HCPCS: 74183 ==

== ENCOUNTER 2023-07-07 08:17 | Outpatient (CLI) | payer OTHER | END 2023-07-07 08:18 | disposition home or self-care (01) | LOC: RAD 08:17 | PROVIDERS: ATTEND Nurse Practitioner Family | DX: M25.551 Pain in right hip (principal) ==

== ENCOUNTER 2024-12-17 09:58 | Outpatient (CLI) | payer OTHER | END 2024-12-17 09:59 | disposition home or self-care (01) | LOC: BICMRI 09:58 | PROVIDERS: ATTEND Urology | DX: M51.24 Other intervertebral disc displacement, thoracic region (principal); M51.44 Schmorl's nodes, thoracic region; M48.04 Spinal stenosis, thoracic region; M48.061 Spinal stenosis, lumbar region without neurogenic claudication; M47.812 Spondylosis without myelopathy or radiculopathy, cervical region; M48.02 Spinal stenosis, cervical region; M50.21 Other cervical disc displacement, high cervical region | CPT/HCPCS: 72141; 72146; 72148 ==